=== PATIENT | female | born 1990 | race Caucasian/White ===

== ENCOUNTER → 2025-03-12 12:35 | Outpatient (REF) | payer OTHER, SELFPAY | LOC: RAD 12:35 | PROVIDERS: ATTENDING PHYSICIAN Nurse Practitioner Family; FAMILY PHYSICIAN Family Medicine | DX: O26.859 Spotting complicating pregnancy, unspecified trimester (principal); O26.851 Spotting complicating pregnancy, first trimester | CPT/HCPCS: 76801; 76817 ==